=== PATIENT | male | born 1955 | race African-American/Black ===

== ENCOUNTER → 2016-12-10 | Emergency (ER) | payer BC ==
[~2016-12-10] MED LIST: ACETAMINOPHEN 500 MG TABLET (FP) ONE; ACETAMINOPHEN 500 MG TABLET (FP) PO ONE; DIPHTH,PERTUSS(ACELL),TET 0.5 ML DISP.SYRIN IM ONE
--- NOTE | 2016-12-10 16:18 | PDOC ---
History of Present Illness - General Chief Complaint: Injury Stated Complaint: LEFT 3RD FINGER LACERATION Time Seen by Provider: 12/10/16 16:15 History Source: Patient Exam Limitations: No Limitations - History of Present Illness Initial Comments: 12/10/16 16:16 Patient is a 61 year old male with history of BPH and distant substance abuse presenting with an injury to his left middle finger two hours ago. Patient states he and a co-worker were putting away a amanda hammer when his finger became crushed between the amanda hammer and the casing. The finger was lacerated at the knuckle and started to bleed. It was cleaned with antibiotic wipes and wrapped in a bandage but continued to bleed prompting patient to present to the ED. Patient has been able to actively move the finger, limited only by pain at the knuckle. Endorses swelling at the knuckle; denies pain, swelling, tingling and coolness to the distal finger. Patient is not on any blood thinners and does not remember the date of his last tetanus vaccination. No other complaints on ROS. Patient is a recovered substance abuser and avoids all analgesics. Past History - Past Medical History Allergies/Adverse Reactions: Allergies Allergy/AdvReac Type Severity Reaction Status Date / Time No Known Allergies Allergy Verified 12/10/16 15:32 Home Medications: Ambulatory Orders Tamsulosin HCl [Flomax] 0.4 mg PO DAILY 12/10/16 Disorders: Yes - Surgical History GI Surgery: Yes (hernia) - Immunization History Immunization Up to Date: No - Suicide/Smoking/Psychosocial Hx Smoking Status: No Smoking History: Former smoker Have you smoked in the past 12 months: No Number of Cigarettes Smoked Daily: 0 Information on smoking cessation initiated: No Hx Alcohol Use: No Drug/Substance Use Hx: No Substance Use Type: None Review of Systems - Review of Systems Comments:: GEN: Denies fever, chills, recent illness HEENTM: Denies sore throat, changes in vision, changes in hearing Respiratory: Denies shortness of breath Cardiac: Denies chest pain, palpitations ABD/GI: Denies abdominal pain, nausea, vomiting, diarrhea, constipation : Denies dysuria, burning on urination, increased frequency of urination Musculoskeletal: Endorses pain and swelling of left 3rd PIP; Denies pain, swelling, numbness, tingling distal to PIP Integumentary: Denies rashes, bruises Neurological: Denies SWANSON, weakness, dizziness Hematologic/Lymphatic: Denies anemia, easy bleeding. All Other Systems Reviewed and Negative *Physical Exam - Vital Signs Last Vital Signs Temp Pulse Resp BP Pulse Ox 98.3 F 74 20 160/98 99 12/10/16 15:32 12/10/16 15:32 12/10/16 15:32 12/10/16 15:32 12/10/16 15:32 - Physical Exam Comments: 12/10/16 16:22 GENERAL: Nourished, Appropriately dressed, AAOx3, NAD HEAD: NCAT EYES: EOMI, sclera anicteric, conjunctiva clear ENT: hearing grossly normal, nares patent, no congestion NECK: Normal ROM, JVD RESP: Speaking in full sentences, Symmetrical chest expansion, no respiratory distress CARDIO: Pulses equal B/L EXTREMITIES: 2 cm longitudinal laceration to dorsal PIP of the 3rd digit of left hand with some swelling fot he PIP, no obvious deformities, normal ROM, cap refill <2s, sensation intact, not actively bleeding. NEUROLOGICAL: CN II-XII grossly intact. Normal speech, normal gait, no focal sensorimotor deficits SKIN: Warm, Dry, normal turgor, no rashes or lesions noted. Medical Decision Making - Medical Decision Making 61 yo male with laceration to the dorsal 3rd digit PIP following a crush injury. No finger deformities, neurovascular status of distal finger intact. Ddx includes but is not limited to skin laceration, laceration of tendons, fracture Plan is to evaluate for fracture or crushing of the joint or foreign body with an xray of the hand perform a nerve block and probe the wound to evaluate injury to the tendons and joint capsule Throughly clean and close the wound +/- ortho consult/followup Tdap The laceration was cleaned with a butadiene solution. A nerve block was performed on the finger with approximately 3 ml 1% lidocaine and an additional 1 ml injected into the would. On examination of the wound, the tendons were visualized and intact. The joint capsule was not compromised. The laceration was closed with 4x simple interrupted using 4.0 nylon. A sterile field and homeostasis were maintained throughout the procedure with < 1cc estimated blood loss. Patient was given instruction on wound care, when to return for wound evaluation and removal of stitches, and return precautions Patient expressed understanding of these instructions and agreement with the plan. *DC/Admit/Observation/Transfer Diagnosis at time of Disposition: Laceration of finger Qualifiers: Encounter type: initial encounter Finger: middle finger Damage to nail status: without damage Foreign body presence: without foreign body Laterality: left Qualified Code(s): S61.213A - Laceration without foreign body of left middle finger without damage to nail, initial encounter - Discharge Dispostion Disposition: HOME Condition at time of disposition: Improved Admit: No - Patient Instructions Printed Discharge Instructions: DI for Laceration Repair -- Finger Additional Instructions: Avoid getting your finger wet for 2 days Do not submerge your finger for 4 days Return to emergency department for wound check and possible suture removal in 7 days If you experience significant pain or notice increasing redness or swelling or discharge, return to the emergency department immediately. - Post Discharge Activity Forms/Work/School Notes: Back to Work
--- NOTE | 2016-12-10 16:34 | PDOC ---
Attending Attestation - Resident Resident Name: Refugio Islas - ED Attending Attestation I have performed the following: I have examined & evaluated the patient, The case was reviewed & discussed with the resident, I agree w/resident's findings & plan, Exceptions are as noted - HPI HPI: 12/10/16 16:32 [place] injury at work. Laceration dorsal aspect PIP joint - Physicial Exam PE: 12/10/16 16:32 1 cm laceration oriented longitudinally over the dorsal PIP joint, third finger , left hand. Wound appears to be superficial. No exposure of joint or bone. Sensation intact to light touch distally. Full extension of DIP and PIP joints against pressure. No tendon disruption visible. Good capillary refill. No bleeding at present. - Medical Decision Making 12/10/16 16:33 Superficial laceration. X-ray to rule out fracture. Digital block for anesthesia and exploration and repair of laceration.
[2016-12-10 16:42] VITALS: BP 160/98; PULSE 74; TEMP 98.3; BMI 27.1
== END | disposition home or self-care (01) ==
LOC: FER 15:31
PROC: 0HQGXZZ Repair Left Hand Skin, External Approach (ICD-10-PCS; principal; 2016-12-10)
PROC: 3E0234Z Introduction of Serum, Toxoid and Vaccine into Muscle, Percutaneous Approach (ICD-10-PCS; 2016-12-10)
DX: S61.213A Laceration without foreign body of left middle finger without damage to nail, initial encounter (principal); W23.1XXA Caught, crushed, jammed, or pinched between stationary objects, initial encounter; Y93.89 Activity, other specified; Y92.9 Unspecified place or not applicable; Y99.0 Civilian activity done for income or pay; N40.0 Benign prostatic hyperplasia without lower urinary tract symptoms; Z87.891 Personal history of nicotine dependence
CPT/HCPCS: 73130-TC-LT; 90715; 99283-25

== ENCOUNTER 2016-12-21 09:42 | Emergency (ER) | payer OTHER, BC ==
--- NOTE | 2016-12-21 09:47 | PDOC ---
Suture Removal/Wound Check HPI - History of Present Illness Chief Complaint: Suture/Staple Removal(Here) Stated Complaint: SUTURE REMOVAL LEFT 3RD FINGER Time Seen by Provider: 12/21/16 09:46 History Source: Yes: Patient Exam Limitations: Yes: No Limitations Treated at: [facility] ED Date of Last ED visit: 12/10/16 - Previous ED Treatment Type of procedure performed on last visit: Yes: Laceration Repair Tetanus Immunization: Yes: Up to Date Antibiotics Prescribed: No - Onset of Previous Treatment Date of Occurence: 12/10/16 Comment:: 12/21/16 09:49 4 sutures removed intact. Nice Closure. Past History - Past Medical History Allergies/Adverse Reactions: Allergies Allergy/AdvReac Type Severity Reaction Status Date / Time No Known Allergies Allergy Verified 12/10/16 15:32 Home Medications: Ambulatory Orders Tamsulosin HCl [Flomax] 0.4 mg PO DAILY 12/10/16 Disorders: Yes - Surgical History GI Surgery: Yes (hernia) - Immunization History Immunization Up to Date: No - Suicide/Smoking/Psychosocial Hx Smoking Status: No Smoking History: Former smoker Have you smoked in the past 12 months: No Number of Cigarettes Smoked Daily: 0 Hx Alcohol Use: No Drug/Substance Use Hx: No Substance Use Type: None *DC/Admit/Observation/Transfer Diagnosis at time of Disposition: Visit for suture removal - Discharge Dispostion Disposition: HOME Condition at time of disposition: Good - Patient Instructions Printed Discharge Instructions: DI for Suture Removal - Post Discharge Activity Forms/Work/School Notes: Back to Work Discharge Disposition - Diagnosis Visit for suture removal - Discharge Dispostion Disposition: HOME Condition at time of disposition: Good Admit: No - Patient Instructions Printed Discharge Instructions: DI for Suture Removal - Post Discharge Activity Work/School Note: Back to Work
[2016-12-21 09:51] VITALS: BP 126/90; PULSE 79; TEMP 98.5; BMI 26.9
== END 2016-12-21 10:09 | disposition home or self-care (01) ==
LOC: FER 09:42
DX: Z48.02 Encounter for removal of sutures (principal)
CPT/HCPCS: 99281-25

== ENCOUNTER 2017-10-09 18:44 | Emergency (ER) | payer BC, OTHER ==
--- NOTE | 2017-10-09 19:28 | PDOC ---
History of Present Illness - History of Present Illness Initial Comments: 10/09/17 19:29 The patient is a 62 year old male, who presents to the emergency department with right knee swelling beginning prior to arrival. The patient states he noted his right knee was swollen when he was changing out of his work clothes ( works w/ [email or web address]). The patient denies any recent injury or trauma. The patient states he does have pain on the posterior side of his right knee. The patient states he is often on his feet at work. He denies any recent bug bites or tick bites. He denies any numbness, tingling or loss of sensation. He denies any weakness. The patient denies chest pain, shortness of breath, headache and dizziness. Denies fever, chills, nausea, vomit, diarrhea and constipation. Denies dysuria, frequency, urgency and hematuria. PAST MEDICAL HISTORY: enlarged prostate PAST SURGICAL HISTORY: no significant history FAMILY HISTORY: no pertinent history SOCIAL HISTORY: Pt lives with family and is employed with [employer]. Former smoker quit 1985. MEDICATIONS: reviewed ALLERGIES: As per nursing notes Review of Systems General: No fevers or chills, no weakness, no weight loss HEENT: No change in vision. No sore throat,. No ear pain CardioVascular: No chest pain or shortness of breath Respiratory:No cough, or wheezing. Gastrointestinal: no nausea, vomiting, diarrhea or constipation, No rectal bleeding Genitourinary: No dysuria, hematuria, or frequency Musculoskeletal: +Right knee swelling and pain. Neurologic: No headache, vertigo, dizziness or loss of consciousness Psychiatric: nor depression Skin: No rashes or easy bruising Endocrine: no increased thirst or abnormal weight change Allergic: no skin or latex allergy All other systems reviewed and normal Physical Exam: General: Well-nourished well-developed individual, no acute distress HEENT: Throat: Normal, tonsils normal, no erythema or exudate Neck: Supple, no meningeal signs, no lymphadenopathy Eyes::Pupils equal reactive and round, extraocular motion intact Chest: Nontender to palpation Cardiac: S1-S2 normal, regular rate and rhythm, no murmurs rubs or gallops Respiratory: Lungs clear to auscultation bilateral Abdomen: Soft, nondistended, normal bowel sounds, nontender to palpation diffusely Extremities: Right lower extremity knee no erythema, no increase in warmth. + Swelling posteriorly and laterally. No palpable effusion. +Minimal tenderness on palpation posteriorly. Neurovascular distal intact. Warm, dry, no cyanosis, clubbing. Skin: No rashes Neuro: Alert and oriented x3, nonfocal exam, grossly intact Psych: Normal mood and affect EKG reviewed by Dr. Mart at 19:45 Sinus rhythm with occasional premature ventricular complexes. Otherwise normal ECG. Vent rate 74 bpm. QT/QTc 374/415 ms <Jerel Santos - Last Filed: 10/09/17 19:49> - General History Source: Patient Exam Limitations: No Limitations - History of Present Illness Initial Comments: 10/09/17 20:39 A portion of this note was documented by scribe services under my direction. I have reviewed the details of the note, within reason, and agree with the documentation. The case summary and management plan written by me. X-rays right knee no acute pathology Ultrasound no DVT There is some fluid medial to the knee Assessment and plan: This is a 62-year-old male who comes in with 2 complaints first complaint was some chest pain yesterday during the day that had completely resolved and has not returned. Patient has no cardiac risk factors and normal EKG non-measurable troponin and a heart score of 1. Patient's knee x-ray was negative for any acute pathology and his ultrasound showed no DVT or any Burnham cyst. It did show some fluid collection medial to the knee which most likely is secondary to a sprain or strain of the knee/ medial collateral ligament. Patient put in an Nolan wrap and given a few days off from work. Patient given orthopedist follow-up Assessment 10/09/17 20:41 <Charisse Hobson I - Last Filed: 10/09/17 20:49> - General Chief Complaint: Injury Stated Complaint: RIGHT KNEE SWELLING Time Seen by Provider: 10/09/17 19:23 Past History <Jerel Santos - Last Filed: 10/09/17 19:49> - Past Medical History COPD: No Disorders: Yes - Surgical History GI Surgery: Yes (hernia) - Immunization History TDAP Vaccination: Yes (12/10/16) Immunization Up to Date: No - Suicide/Smoking/Psychosocial Hx Smoking Status: No Smoking History: Former smoker Have you smoked in the past 12 months: No Number of Cigarettes Smoked Daily: 0 If you are a former smoker, when did you quit?: 1985 Information on smoking cessation initiated: No Hx Alcohol Use: No Drug/Substance Use Hx: No Substance Use Type: None <Charisse Hobson I - Last Filed: 10/09/17 20:49> - Past Medical History Allergies/Adverse Reactions: Allergies Allergy/AdvReac Type Severity Reaction Status Date / Time No Known Allergies Allergy Verified 10/09/17 18:46 Home Medications: Ambulatory Orders Tamsulosin HCl [Flomax] 0.4 mg PO DAILY 12/10/16 *Physical Exam - Vital Signs Last Vital Signs Temp Pulse Resp BP Pulse Ox 96.1 F L 79 16 147/86 96 10/09/17 18:46 10/09/17 18:46 10/09/17 18:46 10/09/17 18:46 10/09/17 18:46 <Jerel Santos - Last Filed: 10/09/17 19:49> - Vital Signs Last Vital Signs Temp Pulse Resp BP Pulse Ox 96.1 F L 79 16 147/86 96 10/09/17 18:46 10/09/17 18:46 10/09/17 18:46 10/09/17 18:46 10/09/17 18:46 <Charisse Hobson I - Last Filed: 10/09/17 20:49> Heart Score/ECG Review - History History: Slightly suspicious - Electrocardiogram EKG: Normal - Age Age: 45-65 - Risk Factors Based on the list above the patient has:: No risk factors known - Troponin Troponin: </= normal limit - Score Heart Score - Total: 1 <Charisse Hobson I - Last Filed: 10/09/17 20:49> ED Treatment Course - LABORATORY CBC & Chemistry Diagram: 10/09/17 19:45 10/09/17 19:45 <Charisse Hobson I - Last Filed: 10/09/17 20:49> *DC/Admit/Observation/Transfer - Attestations Scribe Attestion: 10/09/17 19:30 Documentation prepared by Jerel Santos, acting as medical donation professional for Charisse Hobson MD. <Santos,Jerel - Last Filed: 10/09/17 19:49> - Discharge Dispostion Decision to Admit order: No <TitoCharisse nguyen Irish - Last Filed: 10/09/17 20:49> Diagnosis at time of Disposition: Strain of right knee Qualifiers: Encounter type: initial encounter Qualified Code(s): S86.911A - Strain of unspecified muscle(s) and tendon(s) at lower leg level, right leg, initial encounter - Discharge Dispostion Disposition: HOME Condition at time of disposition: Good - Referrals Referrals: Blaise Mohan [Primary Care Provider] - - Patient Instructions Additional Instructions: For the pain take ibuprofen 3 tablets 3 times a day with food don't take on an empty stomach. I'm giving you a note for no work for the next 3 days. If you not able to return to work in 3 days follow-up with an orthopedist if he needed an orthopedist call Dr. Lo at [phone]. Return to the emergency department immediately with ANY new, persistent or worsening symptoms. Continue any medications as previously prescribed by your physician. You should follow up with your primary doctor as soon as possible regarding today's emergency department visit. . Please make sure your doctor reviews the results of your emergency evaluation. Thank you for coming to the Emergency Department today for your care. It was a pleasure to see you today. Please note that your evaluation is INCOMPLETE until you follow-up with your doctor. - Post Discharge Activity Forms/Work/School Notes: Back to Work
[2017-10-09 19:31] VITALS: BP 147/86; PULSE 79; TEMP 96.1; BMI 27.1
[2017-10-09 20:21] LABS: BASO % 0.5 % (0-2.0); HEMATOCRIT 39.5 % (35.4-49); HEMOGLOBIN 13.2 GM/dl (11.7-16.9); LYMPH % 34.3 % (8-40); MCH 31.6 pg (25.7-33.7); MCHC 33.4 g/dl (32.0-35.9); MEAN CELL VOLUME 94.7 fl (80-96); MEAN PLT VOLUME 9.8 fl (7.5-11.1); MONO % 7.8 % (3.8-10.2); NEUT % 55.4 % (42.8-82.8); PLATELET COUNT 185 K/MM3 (134-434); RBC 4.18 M/mm3 (4.00-5.60); RDW 11.9 % (11.9-15.9); WHITE BLOOD COUNT 7.8 K/mm3 (4.0-10.8)
[2017-10-09 20:36] LABS: ALBUMIN 4.1 g/dl (3.5-5.0); ALK PHOS 44 U/L (32-92); ANION GAP 4 (8-16); BILIRUBIN,TOTAL 0.9 mg/dl (0.2-1.0); BLOOD UREA NITROGEN 12 mg/dl (7-18); CALCIUM 9.3 mg/dl (8.4-10.2); CHLORIDE 106 mmol/L (98-107); CO2 27 mmol/L (22-28); CREATININE 0.9 mg/dl (0.6-1.3); GLUCOSE,RANDOM 90 mg/dl (74-106); POTASSIUM 3.8 mmol/L (3.5-5.1); SGOT/AST 16 U/L (10-42); SGPT/ALT 13 U/L (10-40); SODIUM 137 mmol/L (136-145); TOT PROT 7.2 g/dl (6.4-8.3)
[2017-10-09] MEDS ORDERED: DIPHTH,PERTUSS(ACELL),TET 0.5 ML DISP.SYRIN IM ONE (20:38)
[2017-10-09] MEDS ORDERED: IBUPROFEN 600 MG TABLET (FP) PO ONE ×2 (20:44→20:45)
--- NOTE | 2017-10-11 08:56 | EKG ---
Test Reason : Blood Pressure : / mmHG Vent. Rate : 074 BPM Atrial Rate : 074 BPM P-R Int : 180 ms QRS Dur : 084 ms QT Int : 374 ms P-R-T Axes : 069 -27 030 degrees QTc Int : 415 ms SINUS RHYTHM WITH OCCASIONAL PREMATURE VENTRICULAR COMPLEXES OTHERWISE NORMAL ECG NO PREVIOUS ECGS AVAILABLE Confirmed by ELIO LINO, LAUREN ([id number]) on 10/11/2017 8:55:56 AM Referred By: MD HERNANDEZ Confirmed By:LAUREN BALLARD MD
== END 2017-10-09 20:54 | disposition home or self-care (01) ==
LOC: FER 18:44
PROC: 3E0234Z Introduction of Serum, Toxoid and Vaccine into Muscle, Percutaneous Approach (ICD-10-PCS; principal; 2017-10-09)
DX: S86.911A Strain of unspecified muscle(s) and tendon(s) at lower leg level, right leg, initial encounter (principal); X58.XXXA Exposure to other specified factors, initial encounter; Y93.89 Activity, other specified; Y92.9 Unspecified place or not applicable
CPT/HCPCS: 36415; 71046-TC-FY; 73562-TC-RT-FY; 80053; 82550; 84484; 85025; 86618; 90715; 93005; 93971-TC; 99283-25

== ENCOUNTER 2018-07-17 19:24 | Emergency (ER) | payer BC, OTHER ==
[2018-07-17 19:27] VITALS: BMI 28.5
[2018-07-17] MEDS ORDERED: IBUPROFEN 600 MG TABLET (FP) PO ONE ×2 (19:39→19:48)
[2018-07-17 19:44] VITALS: BP 147/99; PULSE 87; TEMP 98.5
--- NOTE | 2018-07-17 20:26 | PDOC ---
Documentation entered by Celine Duarte SCRIBE, acting as scribe for Charisse Hobson MD. Charisse Hobson MD: This documentation has been prepared by the Gerald freitas Xhesika, SCRIBE, under my direction and personally reviewed by me in its entirety. I confirm that the documentation accurately reflects all work, treatment, procedures, and medical decision making performed by me. History of Present Illness - General Chief Complaint: Pain, Acute Stated Complaint: LEFT TOE PAIN Time Seen by Provider: 07/17/18 19:37 History Source: Patient Exam Limitations: No Limitations - History of Present Illness Initial Comments: 07/17/18 19:44 The patient is a 62 year old male, with no significant past medical history, who presents to the emergency department with L toe pain since 1:30pm. The patient states he works for a [employer] and his co-worker dropped the mitten sewer cap on his foot. Patient states he tried putting Epsom salt and lotion on his foot with no relief. The patient denies chest pain, shortness of breath, headache or dizziness. The patient denies fever, chills, nausea, vomit, diarrhea or constipation. The patient denies dysuria, frequency, urgency or hematuria. PAST MEDICAL HISTORY: no significant history PAST SURGICAL HISTORY: no significant history FAMILY HISTORY: no pertinent history SOCIAL HISTORY: Pt lives with family and is employed. MEDICATIONS: reviewed ALLERGIES: As per nursing notes 07/17/18 20:21 Assessment and plan: This is a 62-year-old male who comes in status post dropping a manhole cover on his foot patient was wearing steel toed boots. X-ray no acute fracture dislocation as read by me Patient told to take Tylenol or Motrin as needed for pain ice the foot 20 minutes at a time 3-4 times a day for the first 24-48 hours. Patient discharged home given ortho to follow-up 07/17/18 20:25 Past History - Past Medical History Allergies/Adverse Reactions: Allergies Allergy/AdvReac Type Severity Reaction Status Date / Time No Known Allergies Allergy Verified 07/17/18 19:25 Home Medications: Ambulatory Orders Tamsulosin HCl [Flomax] 0.4 mg PO DAILY 12/10/16 COPD: No Disorders: Yes - Surgical History GI Surgery: Yes (hernia) - Immunization History TDAP Vaccination: Yes (12/10/16) Immunization Up to Date: No - Suicide/Smoking/Psychosocial Hx Smoking Status: No Smoking History: Never smoked Have you smoked in the past 12 months: No Number of Cigarettes Smoked Daily: 0 If you are a former smoker, when did you quit?: 1985 Hx Alcohol Use: No Drug/Substance Use Hx: No Substance Use Type: None Review of Systems - Review of Systems Able to Perform ROS?: Yes Comments:: 07/17/18 19:44 General: No fevers or chills, no weakness, no weight loss HEENT: No change in vision. No sore throat,. No ear pain CardioVascular: No chest pain or shortness of breath Respiratory:No cough, or wheezing. Gastrointestinal: no nausea, vomiting, diarrhea or constipation, No rectal bleeding Genitourinary: No dysuria, hematuria, or frequency Musculoskeletal:(+) L toe pain. No joint pain or swelling Neurologic: No headache, vertigo, dizziness or loss of consciousness Psychiatric: nor depression Skin: No rashes or easy bruising Endocrine: no increased thirst or abnormal weight change Allergic: no skin or latex allergy All other systems reviewed and normal *Physical Exam - Vital Signs Last Vital Signs Temp Pulse Resp BP Pulse Ox 98.5 F 87 18 147/99 97 07/17/18 19:25 07/17/18 19:25 07/17/18 19:25 07/17/18 19:25 07/17/18 19:25 - Physical Exam Comments: 07/17/18 19:45 GENERAL: The patient is awake, alert, and fully oriented, in no acute distress. HEAD: Normal with no signs of trauma. EYES: Pupils equal, round and reactive to light, extraocular movements intact, sclera anicteric, conjunctiva clear. EXTREMITIES: (+) moderate swelling with ecchymosis over the foot, proximal to the 1st and 2nd toe. (+) decreased range of motion secondary to pain and swelling. Neurovascular intact. NEUROLOGICAL: Normal speech, normal gait. PSYCH: Normal mood, normal affect. SKIN: Warm, Dry, normal turgor, no rashes or lesions noted. ED Treatment Course - RADIOLOGY Radiology Studies Ordered: Category Date Time Status FOOT-LEFT [RAD] Stat Radiology 07/17/18 19:39 Taken - Medications Given in the ED: ED Medications Discontinued Medications Generic Name Dose Route Start Last Admin Trade Name Tabby PRDedrick Reason Stop Dose Admin Ibuprofen 600 mg 07/17/18 19:39 07/17/18 19:50 Motrin - PO 07/17/18 19:40 600 mg ONCE ONE Administration *DC/Admit/Observation/Transfer Diagnosis at time of Disposition: Contusion of left foot Qualifiers: Encounter type: initial encounter Qualified Code(s): S90.32XA - Contusion of left foot, initial encounter - Discharge Dispostion Disposition: HOME Condition at time of disposition: Stable Decision to Admit order: No - Referrals Referrals: Arslan Nichole MD [Staff Physician] - - Patient Instructions Additional Instructions: For the pain U can take ibuprofen 3 tablets 3 times a day with food don't take on an empty stomach alternately U can take 2 extra strength tablets 4 times a day. Wear the Nolan wrap for additional support and comfort, Follow-up with your primary care doctor on Thursday if you are still unable to go back to work because of pain. Also give you the name and orthopedist in follow-up with however U can follow- up with one from [facility] if that is more convenient for you. Return to the emergency department immediately with ANY new, persistent or worsening symptoms. Continue any medications as previously prescribed by your physician. You should follow up with your primary doctor as soon as possible regarding today's emergency department visit. . Please make sure your doctor reviews the results of your emergency evaluation. Thank you for coming to the Emergency Department today for your care. It was a pleasure to see you today. Please note that your evaluation is INCOMPLETE until you follow-up with your doctor. - Post Discharge Activity
== END 2018-07-17 20:32 | disposition home or self-care (01) ==
LOC: FER 19:24
CPT/HCPCS: 73630-TC-LT; 99282-25

== ENCOUNTER 2019-04-24 09:02 | Emergency (ER) | payer BC, OTHER ==
--- NOTE | 2019-04-24 09:06 | PDOC ---
History of Present Illness - General Chief Complaint: Eye Problem Stated Complaint: PINK EYE Time Seen by Provider: 04/24/19 09:05 - History of Present Illness Initial Comments: HPI: 63yo M with PMH of BPH presenting with eye pain. Patient states his symptoms began on Thursday with the right eye and he now feels that it is spreading to the left eye. Currently wears eyeglasses but no contact lenses. Sees an baker bread once yearly for his eyeglasses. He wakes up with his eyes crusted shut. Throughout the day, he experiences thick mucus and watery discharge. His eye pain is rated 7-8/10 and described as "throbbing." No photosensitivity or vision changes. Patient denies sick contacts or trauma. No fevers or chills. PCP: Dr. Mohan ROS: Constitutional: no fever, no chills HEENT: +eye discharge +eye redness Cardiovascular: no chest pain, no palpitations Respiratory: no cough, no shortness of breath Gastrointestinal: no abdominal pain, no nausea Genitourinary: no dysuria, no hematuria Musculoskeletal: no myalgia, no arthralgia Skin: no rash, no itching Neurologic: no headache, no weakness Psych: no agitation, no anxiety PE: General: Awake, alert, and fully oriented, in no acute distress Head: No signs of trauma Eyes: EOMI; bilateral eyes injected and watery, R>L; without copious amounts of pus; no foreign body appreciated; OD: 20/50, OS: 20/40 ENT: Moist mucus membranes Neck: Normal ROM, supple Lungs: Lungs clear, Normal breath sounds Cardio: Regular rhythm, S1 and S2 present Abdomen: Soft, nontender Extremities: Normal range of motion SKIN: Warm, Dry, normal turgor Neurologic: Cranial nerves II through XII grossly intact. Normal speech ED Course/MDM: DDX including but not limited to conjunctivitis- bacterial vs viral vs allergic , corneal abrasion, preseptal/orbital cellulitis Presentation consistent with viral conjunctivits Counseled symptom relief with Zaditor drops, motrin Motrin 400mg Good handwashing Return precautions Stable for discharge 04/24/19 09:53 Past History - Past Medical History Allergies/Adverse Reactions: Allergies Allergy/AdvReac Type Severity Reaction Status Date / Time No Known Allergies Allergy Verified 04/24/19 09:04 Home Medications: Ambulatory Orders Tamsulosin HCl [Flomax] 0.4 mg PO HS 12/10/16 Ketotifen Fumarate [Zaditor] 5 ml OP Q8H PRN #1 bottle 04/24/19 COPD: No Disorders: Yes - Surgical History GI Surgery: Yes (hernia) - Immunization History TDAP Vaccination: Yes (12/10/16) Immunization Up to Date: No - Psycho Social/Smoking Cessation Hx Smoking Status: No Smoking History: Never smoked Have you smoked in the past 12 months: No Number of Cigarettes Smoked Daily: 0 If you are a former smoker, when did you quit?: 1985 Hx Alcohol Use: No Drug/Substance Use Hx: No Substance Use Type: None Discharge - Discharge Information Problems reviewed: Yes Clinical Impression/Diagnosis: Viral conjunctivitis Condition: Stable Disposition: HOME - Additional Discharge Information Prescriptions: Ketotifen Fumarate [Zaditor] 5 ml OP Q8H PRN #1 bottle PRN Reason: eye pain - Follow up/Referral Referrals: Blaise Mohan [Primary Care Provider] - - Patient Discharge Instructions Patient Printed Discharge Instructions: DI for Conjunctivitis Additional Instructions: You came into the emergency department for eye redness and pain. Your presentation is consistent with a viral conjunctivitis. Apply uuch-szw-zxzfodt eye drops called Zaditor to the affected eye. You can take snqi-hkw-rtzqath motrin for pain. Follow the instructions on the medication bottle. Make sure you do not take too much medicine. The maximum daily dose for motrin is 3200mg/day. You can also apply warm compresses to help relieve your symptoms. Immediate medical attention is required if you have : Any change in vision; feeling there is something in your eye, ulcers or open cuts on your eyelids; signs of infection including fever and chills; or any new or concerning symptoms. If you think you are having an emergency, call for emergency medical services or present to the emergency department right away. - Post Discharge Activity Work/Back to School Note: Back to Work
[2019-04-24 09:16] VITALS: BP 152/100; PULSE 77; TEMP 98.4; BMI 27.8
--- NOTE | 2019-04-24 09:17 | PDOC ---
Attending Attestation - Resident Resident Name: Megan Louis - ED Attending Attestation I have performed the following: I have examined & evaluated the patient, The case was reviewed & discussed with the resident, I agree w/resident's findings & plan, Exceptions are as noted - HPI HPI: 63 yo M history BPH presents with R eye irritation, itching, pain for past 2 days. This morning he noticed similar symptoms in the L eye. Both eyes were crusted this morning. +Discharge. Denies fever. No vision changes. - Physicial Exam PE: GENERAL: Awake, alert, and fully oriented, in no acute distress HEAD: No signs of trauma EYES: PERRLA, EOMI, sclera anicteric. Conjunctivae injected B/L, R>L. ENT: Auricles normal inspection, hearing grossly normal, nares patent, oropharynx clear without exudates. Moist mucosa NEUROLOGICAL: Cranial nerves II through XII grossly intact. Normal speech, normal gait. Motor and sensation intact SKIN: Warm, dry, normal turgor, no rashes or lesions noted. - Medical Decision Making Pt with symptoms of viral conjunctivitis. No pain on EOM, no tenderness around the eyes. Symptomatic treatment. Also counseled him to wash sheets and towels with hot water and wash hands frequently.
[2019-04-24] MEDS ORDERED: IBUPROFEN 400 MG TABLET (FP) PO ONE ×2 (09:42→09:43)
== END 2019-04-24 09:51 | disposition home or self-care (01) ==
LOC: FER 09:02
DX: B30.9 Viral conjunctivitis, unspecified (principal); Z87.891 Personal history of nicotine dependence; N40.0 Benign prostatic hyperplasia without lower urinary tract symptoms
CPT/HCPCS: 99282-25

== ENCOUNTER 2020-02-19 09:40 | Emergency (ER) | payer BC, OTHER ==
[2020-02-19 10:16] VITALS: BP 129/86; PULSE 100; TEMP 97.9; BMI 29.8
[2020-02-19] MEDS ORDERED: DEXAMETHASONE LIQUID 0.5 MG/5 ML PO ONE (10:44)
== END 2020-02-19 11:46 | disposition home or self-care (01) ==
LOC: JER 09:40
DX: U07.1 COVID-19 (principal); R05 Cough
CPT/HCPCS: 71046-TC-FY; 99284-25; C9803; U0003

== ENCOUNTER 2021-08-26 22:07 | Emergency (ER) | payer OTHER, BC ==
[2021-08-26 22:23] VITALS: BP 128/83; PULSE 90; TEMP 97.8; BMI 28.5
== END 2021-08-27 01:39 | disposition home or self-care (01) ==
LOC: JERFT 22:07
PROC: 0HQGXZZ Repair Left Hand Skin, External Approach (ICD-10-PCS; principal; 2021-08-26)
DX: S61.211A Laceration without foreign body of left index finger without damage to nail, initial encounter (principal); W26.8XXA Contact with other sharp object(s), not elsewhere classified, initial encounter
CPT/HCPCS: 12002-25; 99282-25

== ENCOUNTER 2024-12-12 15:18 | Emergency (ER) | payer OTHER, BC ==
[2024-12-12 15:45] VITALS: BP 163/82; PULSE 68; RESP 16; TEMP 98.2; BMI 27.1
[2024-12-12] MEDS ORDERED: KETOROLAC TROMETHAMINE 30 MG/1 ML VIAL ONE (15:56)
[2024-12-12] MEDS: SODIUM CHLORIDE 0.9% 500 ML INFUS.BAG IV ONE (16:09)
[2024-12-12] MEDS: KETOROLAC TROMETHAMINE 15 MG/ML VIAL IVPUSH ONE (16:10)
== END 2024-12-12 18:37 | disposition home or self-care (01) ==
LOC: FER 15:18
PROC: 3E0333Z Introduction of Anti-inflammatory into Peripheral Vein, Percutaneous Approach (ICD-10-PCS; principal; 2024-12-12)
DX: N20.9 Urinary calculus, unspecified (principal)
CPT/HCPCS: 74176-TC; 81003; 81015; 96374; 99285-25